=== PATIENT | male | born 1970 | race Two or more races ===

== ENCOUNTER 2023-06-12 10:01 | Outpatient (CLI) | payer OTHER, SELFPAY | END 2023-06-12 10:02 | disposition home or self-care (01) | PROVIDERS: PCP Family Medicine; Visit Provider Family Medicine | DX: Z00.00 Encounter for general adult medical examination without abnormal findings (principal); R31.9 Hematuria, unspecified; Z76.89 Persons encountering health services in other specified circumstances; Z12.5 Encounter for screening for malignant neoplasm of prostate; Z13.6 Encounter for screening for cardiovascular disorders | CPT/HCPCS: 80053; 80061; 82652; 84153 ==

== ENCOUNTER 2023-07-08 06:51 | Outpatient (CLI) | payer OTHER, SELFPAY ==
--- NOTE | 2023-07-08 09:06 | W.ANESCHARGE ---
Anesthesia Charges Start Date/Time Anesthesia Start Date: 07/08/23 Anesthesia Start Time: 08:25 Stop Date/Time Anesthesia Stop Date: 07/08/23 Anesthesia Stop Time: 09:05
--- NOTE | 2023-07-08 09:50 | W.ANESCHARGE ---
Anesthesia Charges Start Date/Time Anesthesia Start Date: 07/08/23 Anesthesia Start Time: 08:25 Stop Date/Time Anesthesia Stop Date: 07/08/23 Anesthesia Stop Time: 09:05
== END 2023-07-08 06:52 | disposition home or self-care (01) ==
LOC: OP CLINIC 06:53
PROVIDERS: PCP Family Medicine; Visit Provider Surgery
DX: Z12.11 Encounter for screening for malignant neoplasm of colon (principal)
CPT/HCPCS: 00811; 00812; 45378; J2704

== ENCOUNTER 2024-01-08 14:36 | Outpatient (CLI) | payer OTHER, SELFPAY | END 2024-01-08 14:37 | disposition home or self-care (01) | PROVIDERS: PCP Family Medicine; Visit Provider Family Medicine | DX: R97.20 Elevated prostate specific antigen [PSA] (principal); R31.9 Hematuria, unspecified; R36.1 Hematospermia; N32.0 Bladder-neck obstruction; N40.0 Benign prostatic hyperplasia without lower urinary tract symptoms | CPT/HCPCS: 80053; 82306; 82330; 86682; G0103 ==

== ENCOUNTER 2025-07-18 09:06 | Outpatient (CLI) | payer OTHER, SELFPAY | END 2025-07-18 09:07 | disposition home or self-care (01) | LOC: FRMREF 09:07 | PROVIDERS: PCP Family Medicine; Visit Provider Family Medicine | DX: E78.00 Pure hypercholesterolemia, unspecified (principal); N40.0 Benign prostatic hyperplasia without lower urinary tract symptoms; Z11.59 Encounter for screening for other viral diseases | CPT/HCPCS: 80053; 80061; 86803; G0103 ==